=== PATIENT | male | born 1985 | race Caucasian/White ===

== ENCOUNTER 2019-10-03 12:13 | Emergency (ER) | payer OTHER ==
[~2019-10-03] VITALS: Ht 177.8 cm; Wt 88.5 kg
[2019-10-03] MEDS ORDERED: ZANTAC 150MG T150 M1 PO (12:24)
[2019-10-03] MEDS ORDERED: OMEPRAZOLE40 MG PO (12:25)
[2019-10-03] MEDS ORDERED: NAPROSYN500 MG PO (13:05)
[2019-10-03] MEDS ORDERED: ZANAFLEX4 MG PO (13:05)
[2019-10-03 14:16] VITALS: BP 133/82
== END 2019-10-03 14:17 | disposition home or self-care (01) ==
LOC: M.ERS 12:13
DX: S16.1XXA Strain of muscle, fascia and tendon at neck level, initial encounter (principal); S39.012A Strain of muscle, fascia and tendon of lower back, initial encounter; S29.012A Strain of muscle and tendon of back wall of thorax, initial encounter; F17.210 Nicotine dependence, cigarettes, uncomplicated; V89.2XXA Person injured in unspecified motor-vehicle accident, traffic, initial encounter; Y93.89 Activity, other specified; Y92.89 Other specified places as the place of occurrence of the external cause; Y99.8 Other external cause status